=== PATIENT | male | born 1960 ===

== ENCOUNTER 2020-10-12 04:45 | Day surgery (SDC) | payer OTHER ==
[2020-10-11 16:16] VITALS: BMI 28.1
[2020-10-12] MEDS ORDERED: LIDOCAINE HCL/PF 2% SDV 5ML VIAL ONE (07:14)
[2020-10-12] MEDS ORDERED: SUCCINYLCHOLINE CHLORIDE 200 MG/10 ML SYRINGE ONE (07:15)
[2020-10-12] MEDS ORDERED: MIDAZOLAM HCL 2 MG/2 ML SINGLE DOSE VIAL ONE (07:15)
[2020-10-12] MEDS ORDERED: PROPOFOL 20 ML ONE (07:15)
[2020-10-12] MEDS ORDERED: ceFAZolin 2 GRAM PREMIX BAG IVPB ONE (07:48)
[2020-10-12] MEDS ORDERED: ceFAZolin SODIUM 1 GM VIAL ONE (07:50)
[2020-10-12] MEDS ORDERED: BACITRACIN 15 GM TUBE TOPICAL OINTMENT ONE (08:40)
[2020-10-12] MEDS ORDERED: oxyCODONE HCL 5 MG TABLET PO PRN (08:42)
[2020-10-12] MEDS ORDERED: ONDANSETRON 4 MG/2 ML VIAL IVPUSH PRN (08:42)
[2020-10-12] MEDS ORDERED: LACTATED RINGERS SOLUTION 1,000 ML IV SCH (08:45)
[2020-10-12] MEDS ORDERED: ONDANSETRON 4 MG/2 ML VIAL ONE (09:26)
[2020-10-12] MEDS ORDERED: ONDANSETRON 4 MG/2 ML VIAL IVPUSH ONE (09:32)
[2020-10-12] MEDS ORDERED: HYDROCHLOROTHIAZIDE 25 MG TABLET (FP) PO ONE ×2 (10:32→10:42)
[2020-10-12] MEDS ORDERED: hydrALAZINE HCL 20 MG/ML VIAL ONE (11:02)
[2020-10-12] MEDS ORDERED: FAMOTIDINE 20 MG PREMIXED IVPB IVPB ONE (11:20)
[2020-10-12] MEDS ORDERED: hydrALAZINE HCL 20 MG/ML VIAL IVPUSH ONE ×2 (11:20→12:00)
[2020-10-12] MEDS ORDERED: FAMOTIDINE 20 MG/50 ML IVPB 20 MG/50 ML MG IVPB ONE (11:26)
[2020-10-12] MEDS ORDERED: ACETAMINOPHEN INJECTION 100 ML IVPB ONE (11:51)
[2020-10-12] MEDS ORDERED: ACETAMINOPHEN 1000 MG/100 ML VIAL (NON FORMULARY) IVPB PRN (12:00)
[2020-10-12] MEDS ORDERED: ACETAMINOPHEN 1000 MG/100 ML VIAL (NON FORMULARY) IVPB ONE (12:16)
[2020-10-12] MEDS ORDERED: PROMETHAZINE HCL 25 MG/1 ML VIAL IVPB ONE (13:45)
[2020-10-12] MEDS ORDERED: PROMETHAZINE HCL 25 MG/1 ML VIAL ONE (13:57)
[2020-10-12 15:01] VITALS: TEMP 97.7
[2020-10-12 20:24] VITALS: BP 159/59; PULSE 54
[2020-10-13] MEDS ORDERED: MULTIVITAMINS (DAILY MVI) TABLET (FP) PO SCH (10:00)
[2020-10-13] MEDS ORDERED: PANTOPRAZOLE 20 MG TABLET PO SCH (10:00)
[2020-10-13] MEDS ORDERED: ATORVASTATIN CA 20 MG TABLET (FP) PO SCH (22:00)
== END 2020-10-12 20:00 | disposition short-term general hospital (02) ==
LOC: JASU-SURG 04:45 → JASUSAT 04:45 → J2C 11:08 → UNDOADMIN 11:08 → JASUSAT 20:00
PROVIDERS: ATTEND Urology
PROC: 0V503ZZ Destruction of Prostate, Percutaneous Approach (ICD-10-PCS; principal; 2020-10-12 07:30)
DX: C61 Malignant neoplasm of prostate (principal)
CPT/HCPCS: 55873; C2618; 94760; J0131